=== PATIENT | female | born 2000 | race African-American/Black ===

== ENCOUNTER 2023-04-23 21:52 | Emergency (ER) | payer OTHER ==
[2023-04-23 21:56] VITALS: BP 152/87; PULSE 96; RESP 20; TEMP 98.2; BMI 36.0
== END 2023-04-24 00:49 | disposition home or self-care (01) ==
LOC: JERFT 21:52
PROC: 09PJXKZ Removal of Nonautologous Tissue Substitute from Left Ear, External Approach (ICD-10-PCS; principal; 2023-04-23)
DX: S00.452A Superficial foreign body of left ear, initial encounter (principal); X58.XXXA Exposure to other specified factors, initial encounter
CPT/HCPCS: 99282-25

== ENCOUNTER 2023-10-03 17:25 | Emergency (ER) | payer OTHER ==
[2023-10-03 17:38] VITALS: BP 130/81; PULSE 94; RESP 18; TEMP 98.2; BMI 31.3
[2023-10-03 18:40] LABS: EPI CELLS 36 /uL (0-25.1); HYALINE CASTS 0 /uL (0-3.1); PH,URINE 8.5 (5.0-8.0); URINE APPEARANCE CLEAR; URINE BACTERIA 1509 /uL (0-1359); URINE BILIRUBIN NEGATIVE (NEGATIVE); URINE COLOR YELLOW; URINE GLUCOSE (UA) NEGATIVE (NEGATIVE); URINE KETONE NEGATIVE (NEGATIVE); URINE LEUK ESTERASE 1+ (NEGATIVE); URINE NITRITE NEGATIVE (NEGATIVE); URINE PROTEIN NEGATIVE (NEGATIVE); URINE RBC 4 /uL (0-23.9); URINE WBC 30 /uL (0-25.8)
[2023-10-03 18:41] LABS: HCG,QUALITATIVE URINE Negative
[2023-10-03 22:36] LABS: SYPHILIS W/ RPR CONF NON-REACTIVE (NONREACTIVE)
[2023-10-03 23:04] LABS: HIV INTERPRETATION NEGATIVE (NEGATIVE)
== END 2023-10-03 19:15 | disposition home or self-care (01) ==
LOC: JER 17:25
DX: N39.0 Urinary tract infection, site not specified (principal); A64 Unspecified sexually transmitted disease
CPT/HCPCS: 36415; 81003; 84703; 86695; 86696; 86780; 87086; 87389; 87491; 87591; 87661; 99283-25